=== PATIENT | female | born 1975 | race Caucasian/White ===

== ENCOUNTER → 2017-08-29 | Outpatient (CLI) | payer BC ==
--- NOTE | 2017-08-30 09:07 | MM ---
Reason for exam: screening (asymptomatic). Last mammogram was performed 1 year and 9 months ago. History: Family history of breast cancer in maternal grandmother at age 59. Benign stereotactic core biopsy, November 09, 1998. 2 core biopsies of the right breast. Took hormonal contraceptives for 3 years. Physical Findings: A clinical breast exam by your physician is recommended on an annual basis and results should be correlated with mammographic findings. MG 3D Screening Mammo W/Cad Bilateral CC and MLO view(s) were taken. Prior study comparison: November 19, 2015, bilateral MG 3d screening mammo w/cad. February 21, 2011, CAD bilateral diagnostic mammogram. The breast tissue is heterogeneously dense. This may lower the sensitivity of mammography. There is chronic nodularity in the right breast, stable. No significant changes when compared with prior studies. ASSESSMENT: Benign, BI-RAD 2 RECOMMENDATION: Routine screening mammogram of both breasts in 1 year.
== END | disposition home or self-care (01) ==
LOC: RADMAMWWP 16:26
PROVIDERS: ATTEND Family Medicine
DX: Z12.31 Encounter for screening mammogram for malignant neoplasm of breast (principal)
CPT/HCPCS: 77063; 77067

== ENCOUNTER → 2018-08-08 | Outpatient (CLI) | payer BC ==
--- NOTE | 2018-08-08 10:20 | US ---
EXAMINATION TYPE: US thyroid st tissue head/neck DATE OF EXAM: 08/08/2018 COMPARISON: NONE CLINICAL HISTORY: 42-year-old female E07.9 Disorder of thyroid, unspecified. Neck swelling TECHNIQUE: Multiple sonographic images of the thyroid gland are obtained. FINDINGS: GLAND SIZE: Right Lobe: 5.0 x 1.0 x 1.7 cm Overall Parenchyma: homogenous Left Lobe: 4.5 x 1.0 x 1.5 cm Overall Parenchyma: homogeneous Isthmus Thickness: 0.2 cm NODULES RIGHT: # of nodules measured on right: 0 LEFT: # of nodules measured on left: 0 ISTHMUS: # of nodules measured in the isthmus: 0 Bilateral neck scanned, no evidence of lymphadenopathy. IMPRESSION: Borderline sized right lobe of thyroid gland. Homogeneous appearance of the thyroid gland without dis crete nodule.
== END | disposition home or self-care (01) ==
LOC: RADUSWWP 09:34
PROVIDERS: ATTEND Family Medicine
DX: E07.9 Disorder of thyroid, unspecified (principal)
CPT/HCPCS: 76536

== ENCOUNTER → 2018-09-11 | Outpatient (CLI) | payer BC ==
--- NOTE | 2018-09-13 09:41 | MM ---
Reason for exam: screening (asymptomatic). Last mammogram was performed 1 year ago. History: Family history of breast cancer in maternal grandmother at age 59. Benign stereotactic core biopsy, November 09, 1998. 2 core biopsies of the right breast. Took hormonal contraceptives for 3 years. Physical Findings: A clinical breast exam by your physician is recommended on an annual basis and results should be correlated with mammographic findings. MG 3D Screening Mammo W/Cad Bilateral CC and MLO view(s) were taken. Prior study comparison: August 29, 2017, bilateral MG 3d screening mammo w/cad. November 19, 2015, bilateral MG 3d screening mammo w/cad. The breast tissue is heterogeneously dense. This may lower the sensitivity of mammography. Finding: There is a typically benign equal density (isodense), oval mass located 5 cm from the nipple in the lower inner quadrant, middle position of the right breast, increase in size, adjacent to biops clip. New finding since August 29, 2017 and November 19, 2015. ASSESSMENT: Incomplete: need additional imaging evaluation, BI-RAD 0 RECOMMENDATION: Ultrasound of the right breast. [facility] will attempt to contact patient to return for ultrasound.
== END | disposition home or self-care (01) ==
LOC: RADMAMWWP 15:48
PROVIDERS: ATTEND Family Medicine
DX: Z12.31 Encounter for screening mammogram for malignant neoplasm of breast (principal)
CPT/HCPCS: 77063; 77067

== ENCOUNTER → 2018-09-27 | Outpatient (CLI) | payer BC ==
--- NOTE | 2018-09-28 09:47 | USB ---
Reason for exam: clinical finding. History: Family history of breast cancer in maternal grandmother at age 59. Benign stereotactic core biopsy, November 09, 1998. 2 core biopsies of the right breast. Took hormonal contraceptives for 11 years beginning at age 14. Indicated problem(s): pain in both breasts. Physical Findings: Nurse Summary: 1cm movable nodule in the right breast (nurse cw). US Breast Workup Limited RT Right limited breast ultrasound including focal area of concern, retroareolar and axilla demonstrates a 1.7 x 1.1 x 1.2cm oval, solid vascular lesion at 6 o'clock corresponds to the mammographic finding for which a biopsy is recommended and a 1.0 x 0.4 x 1.1cm oval, cystic lesion at 6 o'clock, lesions are directly adjacent. These results were verbally communicated with the patient and result sheet given to the patient on 09/27/18. ASSESSMENT: Suspicious, BI-RAD 4 RECOMMENDATION: Surgical consultation and ultrasound core biopsy of the right breast. Called Dr. Bartlett with mammographic findings and has scheduled an appointment for the patient for 10/25/18 at 8:[address] Paz. Biopsy scheduled for 10/09/18 at 12:20. PRELIMINARY REPORT CALLED AND FAXED TO DR. PAZ ON 09/28/18.
== END | disposition home or self-care (01) ==
LOC: RADUSWWP 15:33
PROVIDERS: ATTEND Family Medicine
DX: R92.8 Other abnormal and inconclusive findings on diagnostic imaging of breast (principal)

== ENCOUNTER → 2018-10-09 | Day surgery (SDC) | payer BC ==
[2018-10-09 07:32] VITALS: RESP 16; BMI 25.7
[2018-10-09 08:59] VITALS: BP 116/77; PULSE 60; TEMP 98.4
--- NOTE | 2018-10-09 11:34 | USB ---
EXAMINATION TYPE: US biopsy breast VAD RT, Postbiopsy MG diagnostic mammo RT wo CAD DATE OF EXAM: 10/09/2018 CLINICAL HISTORY: 43-year-old female R92.8 Abnormal mammogram. TECHNIQUE: Ultrasound guided core biopsy of 6:00 right breast. COMPARISON: 09/11/2018 and 09/27/2018 FINDINGS: The procedure of ultrasound guided core biopsy was explained to the patient. Benefits, alt ernatives, and risks were discussed. An informed consent was then obtained. The patient was placed in supine positioning for imaging and for the procedure. The overlying skin w as prepped and draped in usual sterile fashion. Lidocaine buffered with bicarbonate was used as anes thetic into the skin. This is followed by anesthetization with lidocaine and epinephrine mixture into the subcutaneous tissues and around the target lesion in the 6:00 right breast. Under ultrasound guidance, a 13-gauge vacuum-assisted mammotome Elite biopsy gun was used to obtain 6 core samples. Following this, a coil clip was left in lesion. The patient tolerated the procedure well without any immediate complication. The patient was kept in the radiology department for short stay after the procedure and then discharged home in stable condi tion. Post procedure mammogram shows the coil clip deposited along the lateral margin of the 6:00 mass. IMPRESSION: Successful, uncomplicated ultrasound guided core biopsy of round, circumscribed, solid, vascular mass in the 6:00 right breast; full pathology results to follow.
== END | disposition home or self-care (01) ==
LOC: RADUSWWP 07:06
PROVIDERS: ATTEND Surgery
DX: N60.21 Fibroadenosis of right breast (principal); Z88.5 Allergy status to narcotic agent
CPT/HCPCS: 88305; 77065; 19083; A4648; J2001

== ENCOUNTER → 2020-04-21 | Outpatient (CLI) | payer BC ==
--- NOTE | 2020-04-21 15:13 | MM ---
Reason for exam: clinical finding. Last mammogram was performed 1 year and 6 months ago. History: Family history of breast cancer in maternal grandmother at age 59. Benign US biopsy breast VAD RT of the right breast, October 09, 2018. Benign stereotactic core biopsy, November 09, 1998. 2 core biopsies of the right breast. Took hormonal contraceptives for 11 years beginning at age 14. Physical Findings: Nurse Summary: 1.5cm nodule in the right breast at 7 o'clock (nurse mj). MG 3D Diag Mammo W/Cad REMA Bilateral CC and MLO view(s) were taken. Prior study comparison: October 09, 2018, right breast MG diagnostic mammo RT wo CAD. September 11, 2018, bilateral MG 3d screening mammo w/cad. The breast tissue is heterogeneously dense. This may lower the sensitivity of mammography. There is chronic nodularity in the right upper outer quadrant. Circumscribed 2.2cm mass 6 o'clock right breast slightly larger from 1.8cm and continues to gradually enlarge. Otherwise, no significant change. These results were verbally communicated with the patient and result sheet given to the patient on 04/21/20. ASSESSMENT: Incomplete: need additional imaging evaluation, BI-RAD 0 RECOMMENDATION: Ultrasound of the right breast.
--- NOTE | 2020-04-21 15:18 | USB ---
Reason for exam: additional evaluation requested from abnormal screening. History: Family history of breast cancer in maternal grandmother at age 59. Benign US biopsy breast VAD RT of the right breast, October 09, 2018. Benign stereotactic core biopsy, November 09, 1998. 2 core biopsies of the right breast. Took hormonal contraceptives for 11 years beginning at age 14. US Breast Limited RT Right limited breast ultrasound including focal area of concern, retroareolar and axilla demonstrates a 2.2 x 1.7 x 1.2cm oval, lobular, solid, hypoechoic, vascular lesion at 7 o'clock, clip visualized, versus 1.7 x 1.2 x 1.1cm increasing in size, a 0.6 x 0.6 x 0.5cm oval, mixed lesion at 7 o'clock, stable for 19 months, benign, a 0.5 x 0.4 x 0.3cm oval, lesion too small to characterize at 8 o'clock, a 0.3 x 0.3 x 0.1cm oval lesion too small to characterize at 8 o'clock, a 0.5 x 0.4 x 0.4cm oval, hypoechoic, vascular lesion at 6 o'clock for which a 6 month follow up is recommended and a 0.5 x 0.5 x 0.5cm oval, cystic lesion at 9 o'clock. Right breast scanned 6-9 o'clock. These results were verbally communicated with the patient and result sheet given to the patient on 04/21/20. ASSESSMENT: Probably benign, BI-RAD 3 RECOMMENDATION: Surgical consultation of the right breast. (for possible excision of benign enlarging 7 o'clock palpable if symptomatic) Called Dr. Bartlett's office with mammographic findings and has scheduled an appointment for the patient for 06/10/[address] Paz. PRELIMINARY REPORT CALLED AND FAXED TO DR. PAZ ON 04/21/20. Ultrasound of the right breast in 6 months.
== END | disposition home or self-care (01) ==
LOC: RADMAMWWP 13:07
PROVIDERS: ATTEND Family Medicine
DX: N63.10 Unspecified lump in the right breast, unspecified quadrant (principal); N63.20 Unspecified lump in the left breast, unspecified quadrant
CPT/HCPCS: 77062; 77066

== ENCOUNTER → 2022-04-07 | Outpatient (CLI) | payer BC ==
--- NOTE | 2022-04-07 14:36 | MM ---
Reason for Exam: Additional evaluation requested from prior study. Last mammogram was performed 2 year(s) and 0 month(s) ago. Patient History: Menarche at age 10. First Full-Term at age 20. Premenopausal. Hormonal Contraceptives for 11 years from age 14 until age 25. Core Biopsy on the Right side. Core Biopsy on the Right side. 10/09/2018, Benign Core Biopsy on the right side. Benign Stereotactic Core Biopsy. Maternal grandmother had breast cancer, age 59. Risk Values: Rocio 5 year model risk: 1.6%. NCI Lifetime model risk: 12.5%. Prior Study Comparison: 11/19/2015 Bilateral Screening Mammogram, [facility]. 08/29/2017 Bilateral Screening Mammogram, [facility]. 09/11/2018 Bilateral Screening Mammogram, [facility]. 10/09/2018 Right Diagnostic Mammogram, [facility]. 04/21/2020 Bilateral Diagnostic Mammogram, [facility]. Tissue Density: The breast tissue is heterogeneously dense. This may lower the sensitivity of mammography. Findings: Analyzed By CAD. 2 biopsy clips in the right breast redemonstrated including one full circumscribed mass which is stable in size and appearance measuring near 2.0 cm long axis versus most recent mammogram. Smaller round subcentimeter masses are stable in size and appearance in both breasts. No new distortion or suspicious group of microcalcifications bilaterally. Overall Assessment: Benign, BI-RAD 2 Management: Screening Mammogram of both breasts in 1 year. A clinical breast exam by your physician is recommended on an annual basis and results should be correlated with mammographic findings. This exam should not preclude additional follow-up of suspicious palpable abnormalities. Results were given to the patient verbally at the time of exam. Electronically signed and approved by: Braxton Guthrie M.D.
--- NOTE | 2022-04-07 15:05 | USB ---
Reason for Exam: Follow-up at short interval from prior study. Patient History: Menarche at age 10. First Full-Term at age 20. Premenopausal. Hormonal Contraceptives for 11 years from age 14 until age 25. Core Biopsy on the Right side. Core Biopsy on the Right side. 10/09/2018, Benign Core Biopsy on the right side. Benign Stereotactic Core Biopsy. Maternal grandmother had breast cancer, age 59. Risk Values: Rocio 5 year model risk: 1.6%. NCI Lifetime model risk: 12.5%. Technique: Method: Targeted. Prior Study Comparison: 09/11/2018 Bilateral Screening Mammogram, [facility]. 10/09/2018 Right Diagnostic Mammogram, [facility]. 04/21/2020 Bilateral Diagnostic Mammogram, [facility]. Findings: The whole breast of the right breast, the lateral section of the breast of the right breast, the axilla of the right breast and the retroareolar of the right breast were scanned. At 10 7:00 position there is oval lobulated hypoechoic mass with biopsy clip measuring 1.6 x 1.5 x 1.3 cm corresponding to biopsy benign lesion in 2019. Adjacent tissue shows persistent small rounded and oval hypoechoic and anechoic lesions from 7 to 10:00 position felt to reflect thin-walled cysts some with septa. No significant change from 2020 ultrasound. Overall Assessment: Benign, BI-RAD 2 Management: Screening Mammogram of both breasts in 1 year. Return to routine follow-up. Findings and recommendations given to patient at time of dictation. Electronically signed and approved by: Braxton Guthrie M.D.
== END | disposition home or self-care (01) ==
LOC: RADMAMWWP 13:51
PROVIDERS: ATTEND Family Medicine
DX: R92.8 Other abnormal and inconclusive findings on diagnostic imaging of breast (principal); Z80.3 Family history of malignant neoplasm of breast
CPT/HCPCS: 77062; 77066

== ENCOUNTER → 2025-02-18 | Outpatient (CLI) | payer BC ==
--- NOTE | 2025-02-18 08:18 | MM ---
Reason for Exam: Screening (asymptomatic). Last mammogram was performed 1 year(s) and 4 month(s) ago. Patient History: Menarche at age 10. First Full-Term at age 20. Premenopausal. Hormonal Contraceptives for 11 years from age 14 until age 25. Core Biopsy on the Right side. Core Biopsy on the Right side. 10/09/2018, Benign Core Biopsy on the right side. Benign Stereotactic Core Biopsy. Maternal grandmother had breast cancer, age 59. Risk Values: Rocio 5 year model risk: 1.4%. NCI Lifetime model risk: 11.7%. Prior Study Comparison: 04/21/2020 Bilateral Diagnostic Mammogram, [facility]. 04/07/2022 Bilateral MG 3D diag mammo w/cad REMA, [facility]. 10/06/2023 Bilateral MG 3D screening mammo w/cad, [facility]. Tissue Density: The breasts are heterogeneously dense, which may obscure small masses. Findings: Analyzed By CAD. There is no suspicious group of microcalcifications or new suspicious mass in either breast. Stable chronic nodularity. Overall Assessment: Benign, BI-RAD 2 Management: Screening Mammogram of both breasts in 1 year. . Patient should continue monthly self-breast exams. A clinical breast exam by your physician is recommended on an annual basis. This exam should not preclude additional follow-up of suspicious palpable abnormalities. Note on Rocio scores and lifetime risk: 1. A Rocio score greater than 3% is considered moderate risk. If this is the case, consider specialist referral to assess eligibility for a risk reducing agent. 2. If overall lifetime risk for the development of breast cancer is 20% or higher, the patient may qualify for future screening with alternating mammogram and breast MRI. [facility], , 02/18/2025 8:16 AM. Electronically signed and approved by: Jero Rothman M.D. Radiologis
== END | disposition home or self-care (01) ==
LOC: RADMAMWWP 07:14
PROVIDERS: ATTEND Family Medicine
DX: Z12.31 Encounter for screening mammogram for malignant neoplasm of breast (principal); R92.333 Mammographic heterogeneous density, bilateral breasts; Z80.3 Family history of malignant neoplasm of breast
CPT/HCPCS: 77063; 77067